=== PATIENT | female | born 1955 | race African-American/Black ===

== ENCOUNTER 2022-03-25 10:48 | Emergency (ER) | payer OTHER ==
[2022-03-25] MEDS ORDERED: Dexamethasone 4 MG TAB ONE (12:43)
[2022-03-25 13:09] LABS: SARS-CoV-2 NAA Rapid Test Not Detected (NotDetected)
== END 2022-03-25 13:24 | disposition home or self-care (01) ==
LOC: ERS 10:48
DX: J10.1 Influenza due to other identified influenza virus with other respiratory manifestations (principal); Z20.822 Contact with and (suspected) exposure to COVID-19; I10 Essential (primary) hypertension; E03.9 Hypothyroidism, unspecified; Z79.899 Other long term (current) drug therapy
CPT/HCPCS: 0240U; 71045; 94640; 94760; J7620; J8540